=== PATIENT | male | born 1975 | race Caucasian/White ===

== ENCOUNTER 2020-07-21 13:45 | Outpatient (RCR) | payer OTHER, SELFPAY | END 2020-09-25 23:55 | disposition home or self-care (01) | LOC: HO.PAOS 13:45 | PROVIDERS: Visit Provider Psychologist | DX: F43.21 Adjustment disorder with depressed mood (principal) | CPT/HCPCS: 90791 ==

== ENCOUNTER 2020-11-04 10:23 | Outpatient (REF) | payer OTHER, SELFPAY ==
[2020-11-04 10:59] LABS: MANUAL DIFF FLAG NO
[2020-11-04 11:02] LABS: Basophils Percent Auto 0.7 % (0-2); Eosinophils Absolute Auto 0.1 X10*3/uL (0.0-0.4); Eosinophils Percent Auto 1.2 % (0-4); Hematocrit 43.4 % (42-52); Hemoglobin 13.2 g/dl (14.0-18.0); Lymphocytes Absolute Auto 1.6 X10*3/uL (1.2-4.9); Lymphocytes Percent Auto 40.2 % (20-40); Mean Corpuscular HGB Conc 30.4 g/dl (31.0-36.0); Mean Corpuscular Hemoglobin 26.4 pg (27.0-33.0); Mean Corpuscular Volume 86.8 fL (80-98); Mean Platelet Volume 10.1 fL (9.4-12.4); Monocytes Absolute Auto 0.3 X10*3/uL (0.1-1.2); Monocytes Percent Auto 7.9 % (2-11); Platelet Count 269 X10*3/uL (160-400); Red Cell Distribution Width 13.6 % (11.0-16.0); White Blood Count 4.1 X10*3/uL (4.8-10.8)
[2020-11-04 11:39] LABS: Alanine Aminotransferase 21 U/L (0-40); Albumin Level 4.1 g/dL (3.5-5.0); Alkaline Phosphatase 59 U/L (39-117); Anion Gap 12 (12-20); Aspartate Amino Transferase 29 U/L (5-37); Bilirubin Total 0.7 mg/dL (0.0-1.0); Blood Urea Nitrogen 17 mg/dL (9-16); Calcium 9.6 mg/dL (8.4-10.2); Carbon Dioxide 31 mmol/L (22-29); Chloride 106 mmol/L (96-108); Cholesterol 178 mg/dL; Estimated Glomerular Filt Rate > 60; Glucose Random 91 mg/dL (60-115); HDL Cholesterol 84 mg/dL; LDL Cholesterol Calculated 84 mg/dl; Potassium 5.2 mmol/l (3.3-5.1); Sodium 144 mmol/L (135-145); Total Protein 7.5 g/dL (6.5-8.0); Triglycerides 51 mg/dL
[2020-11-04 11:58] LABS: Thyroid Stimulating Hormone 1.85 uIU/mL (0.32-4.0)
== END 2020-11-04 10:24 | disposition home or self-care (01) ==
LOC: HO.LAB 10:23
PROVIDERS: PCP Internal Medicine; Visit Provider Internal Medicine
DX: G47.33 Obstructive sleep apnea (adult) (pediatric) (principal); I10 Essential (primary) hypertension; J45.909 Unspecified asthma, uncomplicated
CPT/HCPCS: 36415; 80053; 80061; 84443; 85025

== ENCOUNTER 2020-11-14 08:05 | Day surgery (SDC) | payer OTHER, SELFPAY ==
--- NOTE | 2020-11-13 09:51 | P.CONAN_ITS ---
Documented by User: Farida Lujan 11/13/20 09:52 HPI - Anesthesia Eval Consult details Narrative: 45yo M for Spinal Cord Simulation Trial lumbar [facility] Past Medical History Medical History Asthma Chronic pain syndrome Degeneration, intervertebral disc, cervical Disc degeneration, lumbar GERD (gastroesophageal reflux disease) HTN (hypertension) Postlaminectomy syndrome Renal calculi Sleep apnea Social History Social History Household Members: None Advance Directives: No Advance Directives Information Provided: Yes Meds Allergies Allergy/AdvReac Type Severity Reaction Status Date / Time ibuprofen [IBUPROFEN] Allergy Unknown GI PROBLEMS Verified 11/14/20 08:36 Home Medications Medication Instructions Recorded Confirmed Type albuterol sulfate 2 puff INHALATION QID 11/10/20 11/10/20 History amlodipine 1 tab PO DAILY 11/10/20 11/10/20 History diclofenac sodium 1 tab PO BID 11/10/20 11/10/20 History ferrous sulfate 1 tab PO DAILY 11/10/20 11/10/20 History gabapentin 1 cap PO BID 11/10/20 11/10/20 History losartan-hydrochlorothiazide 1 tab PO DAILY 11/10/20 11/10/20 History metoprolol succinate 1 tab PO DAILY 11/10/20 11/10/20 History omeprazole 1 cap PO DAILY 11/10/20 11/10/20 History Exam Exam Date and Time: November 13, 2020 0951 Pertinent Lab Results Pertinent Lab Results: Laboratory Tests 11/04/20 11/04/20 10:38 10:38 WBC 4.1 L Hgb 13.2 L Hct 43.4 Plt Count 269 Sodium 144 Potassium 5.2 H Chloride 106 Carbon Dioxide 31 H BUN 17 H Creatinine 0.97 Assessment and Plan Assessment Anesthesia Assessment: Chart Reviewed Documented by User: Cynthia Hong 11/14/20 08:55 PMF Past Medical History Medical History Asthma Chronic pain syndrome Degeneration, intervertebral disc, cervical Disc degeneration, lumbar GERD (gastroesophageal reflux disease) HTN (hypertension) Postlaminectomy syndrome Renal calculi Sleep apnea Social History Social History Household Members: None Advance Directives: No Advance Directives Information Provided: Yes Meds Allergies Allergy/AdvReac Type Severity Reaction Status Date / Time ibuprofen [IBUPROFEN] Allergy Unknown GI PROBLEMS Verified 11/14/20 08:36 Home Medications Medication Instructions Recorded Confirmed Type albuterol sulfate 2 puff INHALATION QID 11/10/20 11/10/20 History amlodipine 1 tab PO DAILY 11/10/20 11/10/20 History diclofenac sodium 1 tab PO BID 11/10/20 11/10/20 History ferrous sulfate 1 tab PO DAILY 11/10/20 11/10/20 History gabapentin 1 cap PO BID 11/10/20 11/10/20 History losartan-hydrochlorothiazide 1 tab PO DAILY 11/10/20 11/10/20 History metoprolol succinate 1 tab PO DAILY 11/10/20 11/10/20 History omeprazole 1 cap PO DAILY 11/10/20 11/10/20 History Exam Airway Mallampati Class: I TM Dist: >3cm Neck ROM: Full
--- NOTE | 2020-11-14 07:23 | MHC.SHP ---
Pre-Procedural Eval Section A The patient is an INPATIENT: No The History & Physical has been completed within 30 days and I have reviewed it.: No Section B Chief Complaint: postlaminectomy syndrome,intervertebal,lumbar Details of Present Illness: postlaminectomy syndrome, chronic pain syndrome. Relevant Family History (Specify if Yes): No Relevant Social History: None Present Medications: see Short Stay Collaborative assessment Medical History: No relevant PMH History of Previous Operations: Relevant previous surgery/procedure and date(s) Allergies: Allergies Allergy/AdvReac Type Severity Reaction Status Date / Time ibuprofen [IBUPROFEN] Allergy Unknown GI PROBLEMS Unverified 07/03/20 17:23 Review of Systems Sugical H&P ROS: Negative: Constitution, Cardiovascular, Respiratory, Neurological, Psychiatric, Hem-Onc, Allergic/Immunologic, Gastrointestinal, Genitourinary, Musculoskeletal, Integumentary, Endocrine and Eyes/Ears/Nose/Throat Exam Surgical H&P Exam: Normal: HEENT, Normal: Heart, Normal: Lungs, Normal: Extremities, Normal: Abdomen, Normal: Skin and Normal: Neurological Plan Diagnosis/Plan: Unchanged I have reviewed the history and physical and performed a pertinent physical examination on my patient. No changes have occurred unless specified.
[2020-11-14 08:41] VITALS: BP 131/78; PULSE 68; RESP 16; TEMP 37.2; O2SAT 100
[2020-11-14 08:54] VITALS: BMI 31.1
[2020-11-14] MEDS: Lactated Ringers 1,000 ML 100 ML IVCONT (09:11)
--- NOTE | 2020-11-14 10:38 | FL_ITS ---
EXAMINATION: XR FLUOROSCOPY WITH IMAGES CLINICAL INFORMATION: Spinal cord stimulation trial COMPARISON: None TECHNIQUE: Fluoroscopy performed by Dr. Rai Townsend. Fluoroscopy time: 3.8 minutes DAP: 26 mGycm2 Images: 5 FINDINGS: Images demonstrate leads in the lower thoracic spinal canal. FL/FL guidance in OR IMPRESSION: Fluoroscopy guidance for spinal cord stimulation trial
[2020-11-14 12:19] VITALS: BP 121/79; PULSE 55; RESP 15; TEMP 36.8; O2SAT 100
--- NOTE | 2020-11-14 12:26 | PM.OP ---
Brief Operative Note Date of Service: 11/14/20 Pre-op diagnosis: Chronic pain syndrome Post-op diagnosis: same Procedure: Trial of [employer] spinal cord stimulation. Implants: Temporary lead insertion. Surgeon: Rai Townsend MD Anesthesia: MAC Estimated blood loss (mL): 0 Pathology: none sent Condition: stable Disposition: PACU
[2020-11-14 12:34] VITALS: PULSE 70; RESP 18; O2SAT 98
[2020-11-14 12:49] VITALS: BP 118/73; PULSE 58; RESP 18; O2SAT 99
[2020-11-14 13:04] VITALS: BP 129/86; PULSE 56; RESP 18; TEMP 36.8; O2SAT 99
--- NOTE | 2020-11-14 13:21 | HO.POSTANES ---
Post Anesthesia Evaluation Post Anesthesia Evaluation Vital Signs: Vital Signs Temp Pulse Resp BP Pulse Ox 11/14/20 13:04 98.2 F 56 18 129/86 99 11/14/20 12:49 58 18 118/73 99 11/14/20 12:34 70 18 98 11/14/20 12:19 98.3 F 55 15 121/79 100 11/14/20 08:41 99.0 F 68 16 131/78 100 Anesthesia: Monitored Mental Status: Awake Pain Control: Satisfactory Nausea/Vomiting: None Hydration: Adequate Anesthesia-Related Issues: No Anes. Related Issues
--- NOTE | 2020-11-14 16:12 | W.PM.OPN ---
Operative Note Operative Note Date of Service: 11/14/20 Narrative: Mr. Engle is very pleasant 45 years old gentleman who came today into the operating room for trial of spinal cord stimulator for the treatment of post laminectomy syndrome. Preoperatively patient received 2 g of cefazolin approximately 30 minutes the before procedure. After obtaining informed consent patient was brought to the operating room, he was positioned prone on operating table, [employer] monitors were applied and patient was deeply sedated. . Time-out was performed delineating correct site, side, the nature of the procedure, patient's allergy, preoperative antibiotic if needed. All operating room staff was participating in OR time-out procedure. Patient's entire back was prepped with ChloraPrep twice and draped with full body fenestrated drape. Sterilely draped C-arm was brought over operating field and square picture of T11-T12 L1 L2 vertebrae as were demonstrated on the screen. Attention FIRST was concentrated on the L1-L2 epidural interspace. The location of the projection of the right pedicle center of the L3 vertebra was found on the skin using C-arm. This location was injected with mixture of lidocaine 2% and Marcaine 0.5% 5 cc. After that 11 blade was used to make a rodolfo on the skin. Ten cm 14 gauge curved introducer epidural needle was inserted through the rodolfo and advanced to L1-L2 epidural interspace. The advancement of the needle was performed on anterior posterior and lateral views. Guitar wire and loss of resistance technique were used to locate epidural space. When guitar wire was spread in the epidural fashion, epidural lead was inserted through the skin and it was advanced to T8 position PRACTICALLY at the THE MIDLINE. After that location of the projection of the LEFT pedicle center of the L3 vertebra was found on the skin using C-arm. This location was injected with mixture of lidocaine 2% and Marcaine 0.5% 5 cc. After that 11 blade was used to make a rodolfo on the skin. Ten cm 14 gauge curved introducer epidural needle was inserted through the rodolfo and advanced to L1-L2 epidural interspace. The advancement of the needle was performed on anterior posterior and lateral views. Guitar wire and loss of resistance technique were used to locate epidural space. When guitar wire was spread in the epidural fashion, epidural lead was inserted through the needle and advanced to the bottom of T7 epidural interspace At this moment patient was awaken and the epidural leads were connected to the testing device. The patient reported stimulation corresponding to his pain. After satisfactory position of the leads were established the needles were withdrawn, the stylette wires were removed from the epidural leads. The anchoring devices were dislodged on the leads and advanced to the level of the skin. The anchoring devices were sutured with two 0-0 silk sutures per each lead to the skin of the patient. The leads were connected to testing device. Bacitracin ointment was applied to the entrance point of bilateral needles. Sterile dressing was applied to the patient's back. The testing device was also glued to the patient's back. Upon completion of the procedure the patient was taken to PACU where HE recovered uneventfully. He went home without immediate complications.
== END 2020-11-14 13:34 | disposition home or self-care (01) ==
PROVIDERS: PCP Internal Medicine; Visit Provider Anesthesiology
PROC: (CPT 63650; principal; 2020-11-14 09:30)
DX: M96.1 Postlaminectomy syndrome, not elsewhere classified (principal); M51.36 Other intervertebral disc degeneration, lumbar region; G89.4 Chronic pain syndrome; I10 Essential (primary) hypertension; J45.909 Unspecified asthma, uncomplicated; G47.30 Sleep apnea, unspecified; Z79.899 Other long term (current) drug therapy
CPT/HCPCS: 63650 ×2; C1787; C1897; J0690; J3010

== ENCOUNTER → 2020-11-20 13:01 | Outpatient (BNVA) | payer OTHER, SELFPAY | PROVIDERS: PCP Internal Medicine; Visit Provider Anesthesiology | DX: M96.1 Postlaminectomy syndrome, not elsewhere classified (principal); M51.36 Other intervertebral disc degeneration, lumbar region; M50.30 Other cervical disc degeneration, unspecified cervical region; G89.4 Chronic pain syndrome | CPT/HCPCS: 99212 ==

== ENCOUNTER → 2020-11-21 11:24 | Outpatient (BNVA) | payer OTHER, SELFPAY | PROVIDERS: PCP Internal Medicine; Visit Provider Nurse Practitioner Family | DX: G89.4 Chronic pain syndrome (principal); M50.30 Other cervical disc degeneration, unspecified cervical region; M51.36 Other intervertebral disc degeneration, lumbar region; M96.1 Postlaminectomy syndrome, not elsewhere classified | CPT/HCPCS: 99212 ==

== ENCOUNTER 2022-01-27 15:39 | Outpatient (REF) | payer OTHER, SELFPAY ==
[2022-01-27 15:55] LABS: MANUAL DIFF FLAG NO
[2022-01-27 16:15] LABS: Basophils Percent Auto 0.7 % (0-2); Eosinophils Absolute Auto 0.1 X10*3/uL (0.0-0.4); Eosinophils Percent Auto 1.6 % (0-4); Hematocrit 40.2 % (42.0-52.0); Hemoglobin 12.6 g/dl (14.0-18.0); Imm Gran Abs Auto 0.01 X10*3/uL (0.00-0.03); Imm Gran Pct Auto 0.2 % (0.0-0.4); Lymphocytes Absolute Auto 1.8 X10*3/uL (1.2-4.9); Lymphocytes Percent Auto 39.5 % (20-40); Mean Corpuscular HGB Conc 31.3 g/dl (31.0-36.0); Mean Corpuscular Hemoglobin 26.8 pg (27.0-33.0); Mean Corpuscular Volume 85.4 fL (80.0-98.0); Mean Platelet Volume 10.1 fL (9.4-12.4); Monocytes Absolute Auto 0.4 X10*3/uL (0.1-1.2); Monocytes Percent Auto 7.9 % (2-11); Neutrophils Absolute Auto 2.2 x10*3/uL (2.0-8.3); Neutrophils Percent Auto 50.1 % (45-73); Platelet Count 252 X10*3/uL (160-400); Red Blood Count 4.71 X10*6/uL (4.60-5.80); Red Cell Distribution Width 14.3 % (11.0-16.0); White Blood Count 4.4 X10*3/uL (4.8-10.8)
[2022-01-27 16:51] LABS: Thyroid Stimulating Hormone 1.62 uIU/mL (0.32-4.0)
[2022-01-27 17:02] LABS: Alanine Aminotransferase 21 U/L (0-40); Albumin Level 3.9 g/dL (3.5-5.0); Alkaline Phosphatase 68 U/L (39-117); Anion Gap 11 (12-20); Aspartate Amino Transferase 30 U/L (5-37); Bilirubin Total 0.8 mg/dL (0.0-1.0); Blood Urea Nitrogen 14 mg/dL (9-16); Calcium 9.7 mg/dL (8.4-10.2); Carbon Dioxide 27 mmol/L (22-29); Chloride 107 mmol/L (96-108); Cholesterol 201 mg/dL; Estimated Glomerular Filt Rate > 60; Glucose Random 106 mg/dL (60-115); HDL Cholesterol 88 mg/dL; LDL Cholesterol Calculated 97 mg/dl; Potassium 4.4 mmol/L (3.3-5.1); Sodium 141 mmol/L (135-145); Total Protein 7.1 g/dL (6.5-8.0); Triglycerides 81 mg/dL
== END 2022-01-27 15:40 | disposition home or self-care (01) ==
LOC: HO.LAB 15:39
PROVIDERS: PCP Internal Medicine; Visit Provider Internal Medicine
DX: G47.33 Obstructive sleep apnea (adult) (pediatric) (principal); I10 Essential (primary) hypertension; M06.9 Rheumatoid arthritis, unspecified; R74.01 Elevation of levels of liver transaminase levels
CPT/HCPCS: 36415; 80053; 80061; 84443; 85025

== ENCOUNTER 2022-05-13 10:57 | Outpatient (REF) | payer OTHER, SELFPAY ==
[2022-05-13 11:18] LABS: MANUAL DIFF FLAG NO
[2022-05-13 12:19] LABS: Basophils Percent Auto 0.9 % (0-2); Eosinophils Absolute Auto 0.1 X10*3/uL (0.0-0.4); Eosinophils Percent Auto 1.8 % (0-4); Hematocrit 41.3 % (42.0-52.0); Hemoglobin 12.5 g/dl (14.0-18.0); Imm Gran Abs Auto 0.01 X10*3/uL (0.00-0.03); Imm Gran Pct Auto 0.2 % (0.0-0.4); Lymphocytes Absolute Auto 1.5 X10*3/uL (1.2-4.9); Lymphocytes Percent Auto 33.9 % (20-40); Mean Corpuscular HGB Conc 30.3 g/dl (31.0-36.0); Mean Corpuscular Volume 85.9 fL (80.0-98.0); Mean Platelet Volume 10.4 fL (9.4-12.4); Monocytes Absolute Auto 0.4 X10*3/uL (0.1-1.2); Monocytes Percent Auto 9.1 % (2-11); Neutrophils Absolute Auto 2.4 x10*3/uL (2.0-8.3); Neutrophils Percent Auto 54.1 % (45-73); Platelet Count 255 X10*3/uL (160-400); Red Blood Count 4.81 X10*6/uL (4.60-5.80); Red Cell Distribution Width 14.9 % (11.0-16.0); White Blood Count 4.4 X10*3/uL (4.8-10.8)
[2022-05-13 13:07] LABS: Ferritin 227 ng/mL (20-250)
== END 2022-05-13 10:58 | disposition home or self-care (01) ==
LOC: HO.LAB 10:57
PROVIDERS: PCP Internal Medicine; Visit Provider Internal Medicine
DX: Z00.00 Encounter for general adult medical examination without abnormal findings (principal); D64.89 Other specified anemias; G47.33 Obstructive sleep apnea (adult) (pediatric); I10 Essential (primary) hypertension; M51.16 Intervertebral disc disorders with radiculopathy, lumbar region
CPT/HCPCS: 36415; 82728; 85025

== ENCOUNTER 2023-05-12 13:37 | Outpatient (REF) | payer OTHER, SELFPAY ==
[2023-05-12 13:47] LABS: MANUAL DIFF FLAG NO
[2023-05-12 14:50] LABS: Basophils Percent Auto 0.4 % (0-2); Eosinophils Absolute Auto 0.1 X10*3/uL (0.0-0.4); Eosinophils Percent Auto 2.9 % (0-4); Hematocrit 41.2 % (42.0-52.0); Hemoglobin 12.7 g/dl (14.0-18.0); Imm Gran Abs Auto 0.01 X10*3/uL (0.00-0.03); Imm Gran Pct Auto 0.2 % (0.0-0.4); Lymphocytes Percent Auto 45.2 % (20-40); Mean Corpuscular HGB Conc 30.8 g/dl (31.0-36.0); Mean Corpuscular Hemoglobin 26.6 pg (27.0-33.0); Mean Corpuscular Volume 86.2 fL (80.0-98.0); Mean Platelet Volume 10.4 fL (9.4-12.4); Monocytes Absolute Auto 0.4 X10*3/uL (0.1-1.2); Monocytes Percent Auto 8.8 % (2-11); Neutrophils Absolute Auto 1.9 x10*3/uL (2.0-8.3); Neutrophils Percent Auto 42.5 % (45-73); Platelet Count 277 X10*3/uL (160-400); Red Blood Count 4.78 X10*6/uL (4.60-5.80); Red Cell Distribution Width 14.6 % (11.0-16.0); White Blood Count 4.5 X10*3/uL (4.8-10.8)
[2023-05-12 15:38] LABS: Ferritin 239 ng/mL (20-250)
[2023-05-12 16:39] LABS: Alanine Aminotransferase 27 U/L (0-40); Albumin Level 3.9 g/dL (3.5-5.0); Alkaline Phosphatase 57 U/L (39-117); Anion Gap 15 (12-20); Aspartate Amino Transferase 32 U/L (5-37); Bilirubin Total 0.6 mg/dL (0.0-1.0); Blood Urea Nitrogen 17 mg/dL (9-16); Carbon Dioxide 24 mmol/L (22-29); Chloride 106 mmol/L (96-108); Cholesterol 191 mg/dL; Estimated Glomerular Filt Rate > 60; Glucose Random 91 mg/dL (60-115); HDL Cholesterol 90 mg/dL; LDL Cholesterol Calculated 81 mg/dl; Potassium 4.1 mmol/L (3.3-5.1); Sodium 141 mmol/L (135-145); Total Protein 7.5 g/dL (6.5-8.0); Triglycerides 100 mg/dL
== END 2023-05-12 13:38 | disposition home or self-care (01) ==
LOC: HO.LAB 13:37
PROVIDERS: PCP Internal Medicine; Visit Provider Internal Medicine
DX: G47.33 Obstructive sleep apnea (adult) (pediatric) (principal); I12.9 Hypertensive chronic kidney disease with stage 1 through stage 4 chronic kidney disease, or unspecified chronic kidney disease; M51.16 Intervertebral disc disorders with radiculopathy, lumbar region; R74.01 Elevation of levels of liver transaminase levels; N18.9 Chronic kidney disease, unspecified
CPT/HCPCS: 36415; 80053; 80061; 82728; 85025

== ENCOUNTER 2023-12-19 11:16 | Outpatient (REF) | payer OTHER, SELFPAY ==
[2023-12-19 12:52] LABS: Alanine Aminotransferase 25 U/L (0-40); Alkaline Phosphatase 57 U/L (39-117); Anion Gap 8 (12-20); Aspartate Amino Transferase 27 U/L (5-37); Bilirubin Total 0.6 mg/dL (0.0-1.0); Blood Urea Nitrogen 20 mg/dL (9-16); Calcium 9.5 mg/dL (8.4-10.2); Carbon Dioxide 31 mmol/L (22-29); Chloride 107 mmol/L (96-108); Estimated Glomerular Filt Rate > 60; Glucose Random 83 mg/dL (60-115); Potassium 4.2 mmol/L (3.3-5.1); Sodium 142 mmol/L (135-145); Total Protein 7.9 g/dL (6.5-8.0)
== END 2023-12-19 11:17 | disposition home or self-care (01) ==
LOC: HO.LAB 11:16
PROVIDERS: PCP Internal Medicine; Visit Provider Internal Medicine
DX: Z00.00 Encounter for general adult medical examination without abnormal findings (principal); I10 Essential (primary) hypertension; E78.00 Pure hypercholesterolemia, unspecified
CPT/HCPCS: 36415; 80053